=== PATIENT | female | born 2000 | race Two or more races ===

== ENCOUNTER 2023-07-06 15:28 | Emergency (ER) | payer OTHER ==
[~2023-07-06] VITALS: Ht 160 cm; Wt 72.6 kg
[2023-07-06] MEDS ORDERED: OFLOXACIN5 M1 OPHT (18:00)
[2023-07-06] MEDS ORDERED: OFLOXACIN5 M1 OT (18:08)
== END 2023-07-06 18:32 | disposition home or self-care (01) ==
LOC: ER 15:29
DX: H60.91 Unspecified otitis externa, right ear (principal); J32.9 Chronic sinusitis, unspecified